=== PATIENT | female | born 1935 | race Caucasian/White ===

== ENCOUNTER → 2016-09-21 | Outpatient (CLI) | payer OTHER, MEDICARE ==
--- NOTE | 2016-09-21 15:19 | CT ---
"CT Scan of the Urinary Tract (Abdomen and Pelvis Without Contrast) Indication: Gross hematuria. Technique: Multidetector helical CT imaging was performed from the kidneys to the urinary bladder, w ithout contrast. Dose reduction techniques were utilized. Comparison: None. Findings: No nephrolithiasis, ureteral calculi, or bladder stones. A well-circumscribed fluid atten uation 3.5-cm cyst emanates off the right kidney. No discernible renal mass on the noncontrast imagi ng. The urinary bladder is completely decompressed. Edema in the retroperitoneum and mesenteric root surrounding the pancreatic neck and uncinate process is contiguous with bowel wall thickening and mesenteric edema in the proximal jejunum just downstrea m from the ligament of Treitz. The bowel wall thickening of the jejunum is best demonstrated on imag es #135 through 146 of series #4. The gallbladder appears to be surgically absent, with clips in the gallbladder fossa. No biliary dilation. The noncontrast liver, spleen, and adrenal glands are normal. Minimal mesenteric edema is present in the low anterior pelvis just superior to the decompressed urin juan bladder. The adjacent loops of small and large bowel are unremarkable except for scattered sigmo id diverticula. No evidence of acute diverticulitis. The uterus is normal size, with benign arcuate calcification. No adnexal mass. The lung bases are clear except for minimal linear atelectasis versus scarring in the inferomedial ri ght middle lobe and lingula. The heart size is normal. The abdominal aorta is normal caliber, with moderate calcified plaque. Mild old compression deformity is present at L2. No acute fracture or macario ne lesion. A small left femoral hernia contains only fluid and fat. No bowel within the hernia. Impression: 1. No nephrolithiasis, ureteral calculi, or renal mass to explain hematuria (note the sensitivity is decreased due to the lack of IV contrast. 2. CT evidence of pancreatitis and duodenitis. 3. Bowel wall thickening of the proximal jejunum may be manifestation of enteritis or lymphoprolifer ative disorder. Recommend GI consultation and endoscopy to optimally characterize. 4. Minimal sigmoid diverticulosis. 5. Left femoral hernia containing only fat and fluid. Attention: This CT examination is specifically designed to evaluate patients who are clinically susp ected of having acute obstructive uropathy. This examination does not use radiographic contrast, and as such, provides only a limited evaluation of the abdomen, pelvis and retroperitoneum. If there i s further clinical suspicion for pathological conditions other than obstructive uropathy, a complete CT evaluation of the abdomen and pelvis utilizing intravenous, oral, and rectal contrast should be co nsidered. A Follow-Up Required test result has been communicated via the [employer] | Critical Result syst em on 09/21/2016 14:53, Message ID [id number]."
== END ==
LOC: FIMAGING 12:42
PROVIDERS: ATTEND Internal Medicine
DX: R31.9 Hematuria, unspecified (principal); K85.90 Acute pancreatitis without necrosis or infection, unspecified; K29.80 Duodenitis without bleeding; K57.30 Diverticulosis of large intestine without perforation or abscess without bleeding; K41.90 Unilateral femoral hernia, without obstruction or gangrene, not specified as recurrent

== ENCOUNTER → 2017-10-10 | Outpatient (CLI) | payer OTHER, MEDICARE | LOC: BHLMT 14:45 | PROVIDERS: ATTEND Internal Medicine Cardiovascular Disease | DX: R60.9 Edema, unspecified (principal); R53.83 Other fatigue | CPT/HCPCS: 93306-PO ==

== ENCOUNTER → 2017-10-18 | Outpatient (CLI) | payer OTHER, MEDICARE | LOC: GIMAGING 16:30 | PROVIDERS: ATTEND Internal Medicine Geriatric Medicine | DX: J98.4 Other disorders of lung (principal); Z87.891 Personal history of nicotine dependence | CPT/HCPCS: 71046-PO ==

== ENCOUNTER → 2017-10-30 | Outpatient (CLI) | payer OTHER, MEDICARE ==
[~2017-10-30] MED LIST: IOPAMIDOL (ISOVUE-300) 100 ML BTL ONE
== END ==
LOC: FIMAGING 15:03
PROVIDERS: ATTEND Internal Medicine Geriatric Medicine
DX: J43.9 Emphysema, unspecified (principal); R91.1 Solitary pulmonary nodule; K57.30 Diverticulosis of large intestine without perforation or abscess without bleeding
CPT/HCPCS: 71260; 74177; Q9967